=== PATIENT | female | born 1965 | race Caucasian/White ===

== ENCOUNTER 2021-04-10 11:07 | Outpatient (CLI) | payer MEDICAID, SELFPAY ==
--- NOTE | 2021-04-10 11:20 | XR_ITS ---
NOTE: Report was unsigned for reason: Order was edited. Original Signature date and time was: 04/10/21 @ 1307 WS: [id number] LEFT hip one view. HISTORY: Back pain. COMPARISON: None. Single AP film of the LEFT hip is submitted. Very mild osteoarthritic changes at the LEFT hip joint. No fracture or dislocation on this single view. Surgical clips are noted within the pelvis overlying the sacrum. WS: [id number] RIGHT hip one view. HISTORY: Back pain. COMPARISON: None. Very minimal narrowing and sclerosis involving the acetabulum. No fractures. Surgical clips are noted overlying the sacrum. XR/XR hip RT 1V wo/w pel [id number] IMPRESSION: Mild osteoarthritis RIGHT hip joint on this single radiograph. [facility] XR/XR hip LT 1V wo/w pel [id number] IMPRESSION: 1. Mild osteoarthritis LEFT hip joint. 2. No additional abnormalities seen on this single view radiograph.
--- NOTE | 2021-04-10 11:20 | XR_ITS ---
WS: [id number] XR thoracic spine 2V [id number] REASON FOR EXAM: BACK PAIN FINDINGS: No significant malalignment. No compression deformity or other significant focal abnormality of the thoracic vertebral bodies. Mild narrowing of the intervertebral disc spaces with small anterior osteophytes in the mid and lower thoracic spine. XR/XR thoracic spine 2V [id number] IMPRESSION: Mild changes of degenerative spondylosis as above.
== END 2021-04-10 11:08 | disposition home or self-care (01) ==
LOC: RAD 11:14
PROVIDERS: PCP Nurse Practitioner Family; Visit Provider Nurse Practitioner Family
DX: M54.40 Lumbago with sciatica, unspecified side (principal); M16.12 Unilateral primary osteoarthritis, left hip
CPT/HCPCS: 72070; 73501; 73521

== ENCOUNTER → 2021-09-04 11:23 | Outpatient (BNVA) | payer MEDICAID, SELFPAY | PROVIDERS: PCP Nurse Practitioner Family; Visit Provider Internal Medicine Cardiovascular Disease | DX: I25.10 Atherosclerotic heart disease of native coronary artery without angina pectoris (principal); I10 Essential (primary) hypertension; E78.5 Hyperlipidemia, unspecified; F17.200 Nicotine dependence, unspecified, uncomplicated; K21.9 Gastro-esophageal reflux disease without esophagitis | CPT/HCPCS: 99214 ==

== ENCOUNTER 2022-01-21 08:37 | Outpatient (CLI) | payer MEDICAID, SELFPAY ==
[2022-01-21 09:02] VITALS: BMI 26.5
--- NOTE | 2022-01-21 09:03 | NMCV_ITS ---
NM felix perf SPECT r/s* [id number] Jimena Guerrero Age: 57 Gender: F : 1965 Exam Date: 01/21/2022 10:21 Ordering Phys: Suad Romo MD ([email or web address]) Technologist: SAVITA Chen Exam Location: [facility] Indications: CHEST PAIN STRESS TEST [facility] IMAGE PROTOCOL Rest/Stress 1 Lexiscan Day Radiopharmaceutical Dose (mCi) Administration Site Administered by Rest: Tc-99m 11.0 IV SAVITA Chen Sestamibi Stress:Tc-99m 32.6 IV SAVITA Styles Sestamibi Rest: 21-Jan-2022 60 Discovery 630 Stress: 21-Jan-2022 30 Discovery 630 0.4mg Lexiscan. Images obtained in supine and prone position. SPECT RESULTS Technical Quality: Excellent Raw Data Analysis: Normal Image Corrections: No attenuation or motion correction applied Summed Stress Score: 5 Summed Rest Score: 5 Summed Difference Score: 2 PERFUSION FINDINGS Small sized perfusion abnormality of mild severity of basal to mid inferolateral and apical septal wall on rest images with some reversibility in basal to mid inferolateral wall and improved tracer uptake on apical septal murphy. FUNCTIONAL RESULTS (calculated via Gated SPECT) Stress Image LV EF (%): 50 Stress EDV (mL):116 TID: 1.2 Stress ESV (mL):58 FUNCTIONAL FINDINGS: The left ventricle is normal in size. Transient Ischemia Dilatation of 1.2. The left ventricular ejection fraction is mildly reduced with a value of 50%. Mild global hypokinesis. IMPRESSIONS 1. Small sized partially reversible perfusion abnormality of mild severity of basal to mid inferolateral murphy. 2. This is suggestive of small area of ischemia in circumflex artery territory. 3. Transient ischemic dilation index mildly increased at 1.2. 4. The left ventricular ejection fraction is mildly reduced with a value of 50% with mild global hypokinesis. 5. No EKG changes with Lexiscan infusion. Refer to separate report for details Suad Romo MD (Electronically Signed) Final Date: 23 January 2022 16:51 S
--- NOTE | 2022-01-21 09:03 | ECG_ITS ---
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 Interpretive Statements NAME OF STUDY: LEXISCAN SESTAMIBI STRESS TEST INDICATION: [Chest pain, History of CAD, ] Procedure: At the baseline, the blood pressure was 143/79 mmHg with a heart rate of 80 bpm. The electrocardiogram showed normal sinus rhythm, normal axis. ST depressions are noted in lead I, II and V5 V6. The Lexiscan was infused over a period of 20 seconds. A total of 0.4 mg of Lexiscan was infused. The stress phase was continued for a total of 5 minutes. Heart rate was at the end of stress phase was 91 bpm and a blood pressure of 156/87 mmHg. The EKG at the peak infusion revealed normal sinus rhythm with no new changes. ST depressions persisted. Sestamibi was injected 20 seconds after the Lexiscan infusion. Blood pressure at the end of recovery phase was 149/80 mmHg with a heart rate of 84 bpm. Conclusion: 1. Normal EKG response to Lexiscan infusion 2. No Lexiscan induced chest pain or cardiac arrhythmia. 3. Normal blood pressure and heart rate response. 4. Sestamibi/sestamibi perfusion scan pending; see separate report. Electronically Signed On 01-21-2022 12:35:09 CDT by Jasiel Owusu M.D. [email or web address]ATION[email or web address].[employer]/store/OM/[id number]
[2022-01-21] MEDS: regadenoson 0.4 Mg/5 ml Syringe IVP (10:48)
[2022-01-21 11:00] VITALS: BP 149/81; PULSE 86
== END 2022-01-21 08:38 | disposition home or self-care (01) ==
PROVIDERS: PCP Nurse Practitioner Family; Visit Provider Internal Medicine Cardiovascular Disease
DX: I25.10 Atherosclerotic heart disease of native coronary artery without angina pectoris (principal); R07.9 Chest pain, unspecified
CPT/HCPCS: 78452; 93017; A9500; J2785

== ENCOUNTER 2022-01-21 12:39 | Outpatient (CLI) | payer MEDICAID, SELFPAY ==
--- NOTE | 2022-01-21 12:56 | XR_ITS ---
WS: [email or web address] Exam: [place] [id number] Date/Time of Exam: 01/21/2022 1:07 PM Reason For Exam: ACUTE PAIN OF L SHOULDER/L UPPER ARM PAIN Findings: There are no fractures or bone anomalies. The bony elements are in adequate alignment. There are no soft tissue calcifications or infiltration. The joint spaces are smooth and intact. XR/[place] [id number] IMPRESSION: Negative left humerus.
--- NOTE | 2022-01-21 12:56 | XR_ITS ---
WS: [email or web address] Exam: XR shoulder LT min 2V* [id number] Date/Time of Exam: 01/21/2022 1:07 PM Reason For Exam: ACUTE PAIN OF LEFT SHOULDER The projections of the shoulder reveal no fractures, anomalies, soft tissue swelling, or calcificatio ns. There is normal bony alignment. No irregularity of the bony architecture is noted. XR/XR shoulder LT min 2V* [id number] IMPRESSION: Negative left shoulder.
== END 2022-01-21 12:40 | disposition home or self-care (01) ==
LOC: RAD 12:42
PROVIDERS: PCP Nurse Practitioner Family; Visit Provider Nurse Practitioner Family
DX: M25.512 Pain in left shoulder (principal); M79.622 Pain in left upper arm
CPT/HCPCS: 73030; 73060

== ENCOUNTER → 2022-01-29 13:42 | Outpatient (BNVA) | payer MEDICAID, SELFPAY | PROVIDERS: PCP Nurse Practitioner Family; Visit Provider Nurse Practitioner Family | DX: I25.10 Atherosclerotic heart disease of native coronary artery without angina pectoris (principal); I10 Essential (primary) hypertension; F17.200 Nicotine dependence, unspecified, uncomplicated | CPT/HCPCS: 99213 ==

== ENCOUNTER → 2022-02-14 08:43 | Outpatient (BNVA) | payer MEDICAID, SELFPAY | PROVIDERS: PCP Nurse Practitioner Family; Visit Provider Nurse Practitioner Family | DX: R07.9 Chest pain, unspecified (principal); I10 Essential (primary) hypertension; I45.89 Other specified conduction disorders; R94.31 Abnormal electrocardiogram [ECG] [EKG]; F17.200 Nicotine dependence, unspecified, uncomplicated | CPT/HCPCS: 93005; 99213 ==

== ENCOUNTER 2022-04-03 07:21 | Day surgery (SDC) | payer OTHER, SELFPAY ==
[2022-04-03] VITALS (14 sets, daily range): BP systolic 108–146; BP diastolic 75–93; PULSE 67–82; RESP 13–20; TEMP 36.7; O2SAT 94–98; BMI 26.2
--- NOTE | 2022-04-03 07:00 | XACV_ITS ---
Gender: Female : 1965 Exam Priority: Routine Diagnostic Cath Status: Elective Diagnostic Findings * Angiography shows a right coronary dominant system. * Normal caliber left main with minor luminal irregularities without significant stenosis.. 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 * Normal caliber left anterior descending artery with luminal irregularities without significant stenosis. * Mild 30% narrowing of proximal RCA. Patent proximal and mid RCA stents. Luminal irregularities in mid and distal RCA. Conclusions 1. 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 2. Mild 30% narrowing of proximal RCA. Patent proximal and mid RCA stents. Luminal irregularities in mid and distal RCA. Recommendations * Continue medical management and risk factor modification. I, the attending physician, have reviewed and verified all procedure medications. Yes, all medications given per verbal order Report Signatures Finalized by Suad Romo MD on 04/14/2022 12:29 PM
[2022-04-03] MEDS: diphenhydrAMINE 50 mg Capsule PO (08:13)
[2022-04-03 08:38] LABS: Anion Gap 16.2 (5-19); Blood Urea Nitrogen 11 mg/dL (6-20); Calcium 9.4 mg/dL (8.5-10.5); Carbon Dioxide 22 mmol/L (22-29); Chloride 100 mmol/L (98-107); Glomerular Filtration Rate 127.2 mL/min (90-130); Glucose 219 mg/dL (65-115); Osmolality Calculated 284 mOsm/kg (285-295); Potassium 4.2 mmol/L (3.5-5.1); Sodium 134 mmol/L (136-145)
--- NOTE | 2022-04-03 08:53 | W.PM.OPSFHP ---
Same Day Surgery H&P Indication for Procedure/HPI DATE OF PROCEDURE: April 03, 2022 CHIEF COMPLAINT/INDICATIONFOR SURGICAL PROCEDURE: Chest pain, Mildly abnormal stress test PREOP DIAGNOSIS: Chest pain, Mildly abnormal stress test PLANNED PROCEDURE: Operation Date: 04/03/22 08:30 Proposed Procedures p Cardiac Catheterization [facility] w/w/o 91968/I25.10/R07.9(Left) - Suad Romo MD 57-year-old lady with past medical history of hypertension, dyslipidemia, type II diabetes mellitus and history of an STEMI on January. LHC showed completely occluded non dominant circumflex and minimal disease in LAD with preserved left ventricular ejection fraction and px occluded right. She is status post drug-eluting stent placement in mid RCA (AN 3x 30). She underwent stress test earlier this year that showed mild ischemia in LCx artery territory. She continues to have chest pains inspite of starting imdur. She presents today for elective LHC . Medications/Allergies* Home Medications Medication Instructions Recorded Confirmed Type aspirin 81 mg tablet,delayed 81 mg PO DAILY 07/01/19 03/11/22 History release (Adult Low Dose Aspirin) atenolol 50 mg tablet 50 mg PO BID 07/01/19 03/11/22 History clopidogrel 75 mg tablet 75 mg PO DAILY 07/01/19 03/11/22 History lisinopril 10 mg tablet 10 mg PO DAILY 07/01/19 04/03/22 History nitroglycerin 0.4 mg sublingual 0.4 mg sublingual Q5M PRN Chest 07/01/19 03/11/22 History tablet (Nitrostat) Pain rosuvastatin 20 mg tablet (Crestor) 20 mg PO DAILY 07/01/19 04/03/22 History acetaminophen 325 mg tablet 325 mg PO QID PRN Pain 09/04/21 03/11/22 History cyclobenzaprine 10 mg tablet 10 mg PO TID PRN muscle spasm 09/04/21 03/11/22 History glipizide 10 mg tablet, extended 20 mg PO BID 09/04/21 04/03/22 History release 24 hr sitagliptin 25 mg tablet (Januvia) 25 mg PO DAILY 09/04/21 04/03/22 History omega 8-wim-cgu-fish oil 100 cap PO 08/03/22 08/19/22 History mg-160 mg-1,000 mg capsule (Fish Oil) sitagliptin 100 mg tablet (Januvia) 100 mg PO DAILY 04/02/22 04/03/22 History Allergies/Adverse Reactions Allergy/AdvReac Type Severity Reaction Status Date / Time No Known Allergies Allergy Verified 03/11/22 07:15 Current Medications: Generic Name Dose Route Start Last Admin Trade Name Hitesh PRN Reason Stop Dose Admin Sodium Chloride 1,000 mls @ 50 mls/hr 04/02/22 13:22 04/03/22 08:13 Sodium Chloride 0.9% IV 04/03/22 09:21 Not Given .Q20H ONE Pertinent History/Comorbid Conditions* Medical History (Updated 12/18/21 @ 11:37 by Suad Romo MD) ASHD (arteriosclerotic heart disease) GERD (gastroesophageal reflux disease) History of COVID-19 Hyperlipidemia Hypertension Nicotine dependence Osteoarthritis Status post non-ST elevation myocardial infarction (NSTEMI) Type 2 diabetes mellitus Surgical History (Updated 09/04/21 @ 12:05 by Suad Romo MD) History of dental surgery Family History (Updated 07/01/19 @ 12:04 by Minerva Baker LPN) Diabetes Hypertension Social History Smoking and tobacco status: current every day smoker (1 pdd X 6 years) Lives independently: Yes Household members: significant other Pertinent Exam Findings alert, oriented x 3, clear to auscultation bilaterally, regular rate & rhythm, operative site marked and procedure specific exam findings (1+radial) Conscious Sedation Assessment PATIENT ASSESSED PRIOR TO SEDATION, WITH NO CHANGE NOTED: Yes AIRWAY EVAL/ANESTHESIA PLAN: normal airway, ASA II, Monitored Anesthesia, Local Anesthesia, Risks, benefits & alternatives of sedation and/or procedure discussed and Patient agrees to continue as planned Recommendations Surgery/Procedure today Coding Level of Care Code Acute Rn Telephonic for Eleanor Alfredo
--- NOTE | 2022-04-03 10:23 | PC.NURSE ---
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 pt alert and oriented x3. pt complains of no pain. tr band present on right wrist with no bruising or hematoma noted. pt placed on monitor and will be monitored per protocol. pt and family educated on restrictions of right wrist and both acknowledged understanding. nurse to continue to educated through recovery.
== END 2022-04-03 12:56 | disposition home or self-care (01) ==
PROVIDERS: PCP Nurse Practitioner Family; Visit Provider Internal Medicine Cardiovascular Disease
DX: I65.21 Occlusion and stenosis of right carotid artery (principal); R94.39 Abnormal result of other cardiovascular function study; I25.10 Atherosclerotic heart disease of native coronary artery without angina pectoris; I10 Essential (primary) hypertension; E78.5 Hyperlipidemia, unspecified; E11.9 Type 2 diabetes mellitus without complications; I25.2 Old myocardial infarction; Z79.82 Long term (current) use of aspirin; K21.9 Gastro-esophageal reflux disease without esophagitis; M19.90 Unspecified osteoarthritis, unspecified site; Z86.16 Personal history of COVID-19; F17.210 Nicotine dependence, cigarettes, uncomplicated
CPT/HCPCS: 80048; 93454; 99152; 99153; C1769; C1887; C1894; J1644; J2250; J3010; J3490; J7030; Q0163; Q9967

== ENCOUNTER → 2022-04-14 14:34 | Outpatient (BNVA) | payer OTHER, SELFPAY | PROVIDERS: PCP Nurse Practitioner Family; Visit Provider Nurse Practitioner Family | DX: I25.10 Atherosclerotic heart disease of native coronary artery without angina pectoris (principal) | CPT/HCPCS: 80048 ==

== ENCOUNTER 2022-05-02 01:14 | Emergency (ER) | payer OTHER, SELFPAY ==
[2022-05-02] VITALS (10 sets, daily range): BP systolic 132–174; BP diastolic 78–97; PULSE 66–76; RESP 12–22; TEMP 36.6; O2SAT 91–100; BMI 28.3
--- NOTE | 2022-05-02 01:20 | ECG_ITS ---
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 Measurements Intervals [place] Rate: 76 P: 60 OK: 193 QRS: 59 QRSD: 116 T: 86 QT: 393 QTc: 444 Interpretive Statements SINUS RHYTHM MODERATE INTRAVENTRICULAR CONDUCTION DELAY [110+ ms QRS DURATION] NONSPECIFIC ST & T-WAVE ABNORMALITY Compared to ECG 02/24/2019 04:07:08 Intraventricular conduction delay now present Possible ischemia no longer present T-wave abnormality still present Electronically Signed On 05-02-2022 11:47:55 CDT by Suad Romo M.D. [id number]
--- NOTE | 2022-05-02 01:20 | XRR_ITS ---
PROCEDURE INFORMATION: Exam: XR Chest Exam date and time: 05/02/2022 1:46 AM Age: 57 years old Clinical indication: Chest pressure; Prior surgery; Surgery type: Cardiac stent; Patient HX: C/O chest pain; Additional info: Cp TECHNIQUE: Imaging protocol: Radiologic exam of the chest. Views: 1 view. COMPARISON: CR XR chest 1V [id number] 02/23/2019 9:52 PM FINDINGS: Lungs: The lung parenchyma is clear. Pleural spaces: No pneumothorax. No pleural effusion. Heart/Mediastinum: The cardiomediastinal silhouette is within normal limits. Bones/joints: Unremarkable. XR/XR chest 1V portable [id number] IMPRESSION: No acute cardiopulmonary abnormality.
--- NOTE | 2022-05-02 01:35 | W.ED.CHESTPA ---
HPI - Chest Pain General: Chief Complaint: Chest Pain Stated Complaint: CP Time Seen by Provider: 05/02/22 01:20 Source: patient and EMS Mode of arrival: EMS Limitations: no limitations History of Present Illness: 57-year-old female who states she started having some chest pain at 10:00 in the evening states its been a pressure of pain in the left side of her chest. She denies any diaphoresis had some mild dyspnea states she has been under lots of stress lately her sister has been ill. Patient had a cardiac cath 3 weeks ago showed no acute abnormalities. Patient given nitro and aspirin she is currently pain-free. Associated symptoms: Deny abdominal pain, dyspnea, fever(s), nausea or vomiting Review of Systems Const: Denies: fever(s), chills, body aches or change in appetite Eyes: Denies: blurry vision or eye discomfort ENMT: Denies: throat pain or dental pain Card: Reports: chest pain Resp: Denies: dyspnea GI: Denies: abdominal pain, nausea, vomiting or diarrhea : Denies: dysuria Musc: Denies: neck pain or back pain Skin/Breast: Denies: rash Neuro: Denies: headache(s) Psych: Denies: depression Garfield/Lymph: Denies: easy bruising All/Imm: Denies: urticaria PFSH ED PFSH: Medical History ASHD (arteriosclerotic heart disease) GERD (gastroesophageal reflux disease) History of COVID-19 Hyperlipidemia Hypertension Nicotine dependence Osteoarthritis Status post non-ST elevation myocardial infarction (NSTEMI) Type 2 diabetes mellitus Surgical History History of dental surgery Family History Other Diabetes Hypertension Social History Smoking and tobacco status: current every day smoker Lives independently: Yes Household members: significant other Physical Exam Const: COMMON NORMALS: no acute distress, patient oriented x3 and healthy appearing HENMT: COMMON NORMALS: normocephalic and atraumatic HEAD & SCALP: normocephalic and atraumatic Eye: COMMON NORMALS: Equal, round and reactive pupils present and EOMs intact bilaterally PUPIL: Yes Equal, round and reactive pupils present Neck/C-Spine: COMMON NORMALS: full ROM and supple Chest: COMMONS NORMALS: normal inspection of the chest and normal palpation of entire chest wall Resp: COMMON NORMALS: normal respiratory effort, No retractions, No use of accessory muscles and clear to auscultation bilaterally AUSCULTATION: clear to auscultation bilaterally Cardio: COMMON NORMALS: regular rate, regular rhythm and No murmurs present (Cardio) RATE: regular rate RHYTHM: regular rhythm GI: COMMON NORMALS: Normal to inspection, nondistended, normoactive bowel sounds present, Soft to palpation, non-tender and no masses PALPATION: Yes Soft to palpation Extremity: COMMON NORMALS: normal to inspection and full ROM Neuro: COMMON NORMALS: patient oriented x3, moves all extremities and no focal motor deficits Psych: COMMON NORMALS: mental status grossly normal, Normal thought process present and cooperative THOUGHT PROCESS: Normal thought process present Skin: COMMON NORMALS: no rashes or lesions noted and no wounds GENERAL SKIN EXAM: no rashes or lesions noted Course Vital Signs: Vital signs: Vital Signs Temperature 98 F 05/02/22 01:27 Pulse Rate 66 05/02/22 03:45 Respiratory Rate 14 05/02/22 03:45 Blood Pressure 137/88 05/02/22 03:45 Pulse Oximetry 91 05/02/22 03:15 Oxygen Delivery Me thod 05/02/22 01:27 MDM - Chest Pain Medical Decision Making Patient presents here with chest pain atypical in nature she has had a recent cardiac cath that was negative her blood work here is normal she is stable for discharge she is to follow-up with her contracts officer return if worsening she understands agrees to plan. Lab Data : 05/02/22 01:25 05/02/22 02:15 Laboratory Results WBC 13.0 10^3/uL (4.0-10.0) H 05/02/22 01:25 RBC 4.82 10^6/uL (4.1-5.3) 05/02/22 01:25 Hgb 15.7 g/dL (11.5-15.3) H 05/02/22 01:25 Hct 43.6 % (37.0-47.0) 05/02/22 01:25 MCV 90.5 fl (81-99) 05/02/22 01:25 MCH 32.6 pg (28.0-34.0) 05/02/22 01:25 MCHC 36.0 g/dL (30.0-36.0) 05/02/22 01:25 RDW 11.6 % (12.1-15.1) L 05/02/22 01:25 Plt Count 179 10^3/cmm (130-400) 05/02/22 01:25 MPV 10.7 fL (7.4-10.4) H 05/02/22 01:25 Neut % (Auto) 50.0 % 05/02/22 01:25 Lymph % (Auto) 41.1 % 05/02/22 01:25 [place] % (Auto) 6.1 % 05/02/22 01:25 Eos % (Auto) 1.8 % 05/02/22 01:25 Baso % (Auto) 0.6 % 05/02/22 01:25 Neut # (Auto) 6.48 10^3/uL (1.8-7.7) 05/02/22 01:25 Lymph # (Auto) 5.3 10^3/uL (0.8-4.8) H 05/02/22 01:25 [place] # (Auto) 0.8 10^3/uL (0.2-0.9) 05/02/22 01:25 Eos # (Auto) 0.2 10^3/uL (0.0-0.8) 05/02/22 01:25 Baso # (Auto) 0.1 10^3/uL (0.0-0.1) 05/02/22 01:25 Nucleated RBC % (auto) 0 % 05/02/22 01:25 Nucleated RBCs # 0.0 /100WBC 05/02/22 01:25 Sodium 134 mmol/L (136-145) L 05/02/22 02:15 Potassium 3.8 mmol/L (3.5-5.1) 05/02/22 02:15 Chloride 100 mmol/L (98-107) 05/02/22 02:15 Carbon Dioxide 22 mmol/L (22-29) 05/02/22 02:15 Anion Gap 15.8 (5-19) 05/02/22 02:15 BUN 8 mg/dL (6-20) 05/02/22 02:15 Creatinine 0.5 mg/dL (0.5-0.9) 05/02/22 02:15 GFR Calculation 127.2 mL/min (90-130) 05/02/22 02:15 Glucose 324 mg/dL (65-115) H 05/02/22 02:15 Calculated Osmolality 289 mOsm/kg (285-295) 05/02/22 02:15 Calcium 9.4 mg/dL (8.5-10.5) 05/02/22 02:15 Total Bilirubin 0.2 mg/dL (0.15-1.2) 05/02/22 02:15 AST 11 U/L (0-32) 05/02/22 02:15 ALT 18 U/L (0-33) 05/02/22 02:15 Alkaline Phosphatase 112 U/L (35-105) H 05/02/22 02:15 Troponin T Baseline 12 ng/L (0-10) H 05/02/22 01:25 Troponin T 120 Minute 12.77 ng/L (0-10) H 05/02/22 03:15 Delta Troponin T 0.77 ABS# (0-10) 05/02/22 03:15 Total Protein 6.9 g/dL (6.6-8.7) 05/02/22 02:15 Albumin 3.9 g/dL (3.5-5.2) 05/02/22 02:15 Globulin 3.0 g/dL (1.3-4.6) 05/02/22 02:15 EKG Data EKG 1: I personally reviewed and interpreted this EKG as follows: EKG interpretation date: 05/02/22 EKG interpretation time: 01:26 Interpretation: nsr hr [address] elevation qrs 116 qtc 424 EKG 2: I personally reviewed and interpreted this EKG as follows: EKG interpretation date: 05/02/22 EKG interpretation time: 03:16 Interpretation: nsr hr [address] or t wave abnormalities qrs 117 qtc 418 Discharge Plan Discharge Patient Disposition: Home Clinical Impression: Atypical chest pain Condition: Stable Prescriptions: No Action rosuvastatin [Crestor] 20 mg tablet 20 mg PO DAILY lisinopril 10 mg tablet 10 mg PO DAILY nitroglycerin [Nitrostat] 0.4 mg tablet, sublingual 0.4 mg SUBLINGUAL Q5M PRN (Reason: Chest Pain) clopidogrel 75 mg tablet 75 mg PO DAILY aspirin [Adult Low Dose Aspirin] 81 mg tablet,delayed release (DR/EC) 81 mg PO DAILY atenolol 50 mg tablet 50 mg PO BID glipizide 10 mg tablet extended release 24hr 20 mg PO BID Januvia 25 mg tablet 25 mg PO DAILY cyclobenzaprine 10 mg tablet 10 mg PO TID PRN (Reason: muscle spasm) acetaminophen 325 mg tablet 325 mg PO QID PRN (Reason: Pain) Fish Oil 100-160-1,000 mg capsule PO Januvia 100 mg Tablet 100 mg PO DAILY isosorbide mononitrate 30 mg tablet extended release 24 hr 30 mg PO BID Qty: 180 2RF Discharge Orders: Discharge ED (Routine); Ordered 05/02/22 Ordered By: Lars Moreno Referrals: Suad Romo MD [Physician] - 1-3 days Gudino,SURINDER Mauricio [Primary Care Provider] - Discharge Diet: Advance as tolerated Discharge Activity: Resume usual activity Patient Instructions: Chest Pain (ED) Coding Level of Care Code ED Firer Helper for Chg Fwd Exam Comprehensive
[2022-05-02 01:37] LABS: Basophils # 0.1 10^3/uL (0.0-0.1); Basophils % 0.6 %; Eosinophils # 0.2 10^3/uL (0.0-0.8); Eosinophils % 1.8 %; Hematocrit 43.6 % (37.0-47.0); Hemoglobin 15.7 g/dL (11.5-15.3); Lymphocytes # 5.3 10^3/uL (0.8-4.8); Lymphocytes % 41.1 %; Mean Corpuscular Hemoglobin 32.6 pg (28.0-34.0); Mean Corpuscular Volume 90.5 fl (81-99); Mean Platelet Volume 10.7 fL (7.4-10.4); Monocytes # 0.8 10^3/uL (0.2-0.9); Monocytes % 6.1 %; Neutrophils # 6.48 10^3/uL (1.8-7.7); Nucleated Red Blood Cells % 0 %; Platelet Count 179 10^3/cmm (130-400); Red Blood Count 4.82 10^6/uL (4.1-5.3); Red Cell Distribution Width 11.6 % (12.1-15.1)
[2022-05-02 02:05] LABS: Troponin(5th) Baseline 12 ng/L (0-10)
[2022-05-02 02:43] LABS: Alanine Aminotransferase 18 U/L (0-33); Albumin Level 3.9 g/dL (3.5-5.2); Alkaline Phosphatase 112 U/L (35-105); Anion Gap 15.8 (5-19); Aspartate Amino Transferase 11 U/L (0-32); Blood Urea Nitrogen 8 mg/dL (6-20); Calcium 9.4 mg/dL (8.5-10.5); Carbon Dioxide 22 mmol/L (22-29); Chloride 100 mmol/L (98-107); Glomerular Filtration Rate 127.2 mL/min (90-130); Glucose 324 mg/dL (65-115); Osmolality Calculated 289 mOsm/kg (285-295); Potassium 3.8 mmol/L (3.5-5.1); Sodium 134 mmol/L (136-145); Total Bilirubin 0.2 mg/dL (0.15-1.2); Total Protein 6.9 g/dL (6.6-8.7)
--- NOTE | 2022-05-02 03:16 | ECG_ITS ---
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 Measurements Intervals [place] Rate: 73 P: 68 OK: 185 QRS: 55 QRSD: 117 T: 133 QT: 392 QTc: 434 Interpretive Statements SINUS RHYTHM MODERATE INTRAVENTRICULAR CONDUCTION DELAY [110+ ms QRS DURATION] ST DEVIATION AND MODERATE T-WAVE ABNORMALITY, CONSIDER LATERAL ISCHEMIA [-0.1+ mV T-WAVE IN I/aVL/V5/V6] Compared to ECG 05/02/2022 01:26:01 Possible ischemia now present T-wave abnormality still present Electronically Signed On 05-02-2022 11:52:34 CDT by Suad Romo M.D. [id number]
[2022-05-02 03:44] LABS: Troponin 5 2HR 12.77 ng/L (0-10)
[2022-05-02 03:48] LABS: Troponin 5 2HR Delta 0.77 ABS# (0-10)
== END 2022-05-02 04:03 | disposition home or self-care (01) ==
PROVIDERS: Emergency Provider Emergency Medicine; PCP Nurse Practitioner Family
DX: R07.89 Other chest pain (principal); Z79.82 Long term (current) use of aspirin; Z79.02 Long term (current) use of antithrombotics/antiplatelets; Z79.84 Long term (current) use of oral hypoglycemic drugs; E78.5 Hyperlipidemia, unspecified; I10 Essential (primary) hypertension; I25.2 Old myocardial infarction; E11.9 Type 2 diabetes mellitus without complications; F17.210 Nicotine dependence, cigarettes, uncomplicated
CPT/HCPCS: 71045; 80053; 84484; 85025; 93005; 99285

== ENCOUNTER 2023-04-13 06:00 | Outpatient (RCR) | payer OTHER, SELFPAY | END 2023-04-28 23:59 | disposition home or self-care (01) | LOC: TPT 06:00 | PROVIDERS: PCP Nurse Practitioner Family; Visit Provider Orthopaedic Surgery | DX: Z47.89 Encounter for other orthopedic aftercare (principal) | CPT/HCPCS: 97110; 97162 ==

== ENCOUNTER 2023-04-29 06:00 | Outpatient (RCR) | payer OTHER, SELFPAY | END 2023-05-28 23:59 | disposition home or self-care (01) | LOC: TPT 06:00 | PROVIDERS: PCP Nurse Practitioner Family; Visit Provider Orthopaedic Surgery | DX: Z47.89 Encounter for other orthopedic aftercare (principal) | CPT/HCPCS: 97110 ==

== ENCOUNTER 2023-07-09 06:00 | Outpatient (RCR) | payer MEDICARE, SELFPAY | END 2023-07-29 23:59 | disposition home or self-care (01) | LOC: TPT 06:00 | PROVIDERS: Visit Provider Nurse Practitioner Family | DX: M54.42 Lumbago with sciatica, left side (principal) | CPT/HCPCS: 97110; 97162 ==